=== PATIENT | female | born 1995 | race African-American/Black ===

== ENCOUNTER 2024-06-11 20:53 | Emergency (ER) | payer SELFPAY ==
[~2024-06-11] VITALS: Ht 154.9 cm; Wt 52.0 kg
[2024-06-11 21:03] VITALS: BP 124/77; PULSE 99; TEMP 98.2; O2SAT 99
[2024-06-11] MEDS ORDERED: DEXAMETHASONE 10 MG/ML VIAL IM ONE (22:30)
[2024-06-11 22:45] VITALS: RESP 19
[2024-06-11] MEDS: ACETAMINOPHEN 325MG TABLET PO ONE (22:45)
[2024-06-11] MEDS: DEXAMETHASONE 10 MG/ML VIAL IM NR (22:45)
[2024-06-11] MEDS ORDERED: PENI500T MT (23:13)
== END 2024-06-12 00:42 | disposition home or self-care (01) ==
LOC: ER 20:53
DX: J02.0 Streptococcal pharyngitis (principal); M79.10 Myalgia, unspecified site; Z20.822 Contact with and (suspected) exposure to COVID-19
CPT/HCPCS: 87430; 87804 ×2; 96372; 99283; 87426; J1100; Z7610